=== PATIENT | male | born 1960 | race Caucasian/White ===

== ENCOUNTER 2018-07-24 17:13 | Inpatient (IN) | payer MEDICAID ==
[~2018-07-24] VITALS: Ht 175.3 cm; Wt 74.8 kg
[2018-07-24] MEDS ORDERED: SODIUM CHLORIDE 0.9% 1,000 ML IV ONE (20:34)
[2018-07-24 21:00] LABS: BASOPHILS % 1.1 % (0.0-2.0); HEMATOCRIT. 39.4 % (42.0-52.0); HEMOGLOBIN. 13.5 g/dL (14.0-18.0); LYMPHOCYTES % 29.8 % (20.0-50.0); MEAN CORPUSCULAR HEMOGLOBIN 36.3 pg (28.0-32.0); MEAN PLATELET VOLUME 11.1 fl (7.4-10.4); MONOCYTES % 6.1 % (2.0-8.0); PLATELET 108 x1000/uL (130-400); RED BLOOD CELL COUNT 3.72 mill/uL (4.7-6.1); RED CELL DISTRIBUTION WIDTH 13.7 % (11.6-14.6)
[2018-07-24 21:03] LABS: CHLORIDE 106 mEq/L (98-107)
[2018-07-24 21:07] LABS: ETHANOL BLOOD 278 mg/dL
[2018-07-24] MEDS ORDERED: INSULIN REGULAR (HUMULIN R) 300UNITS/3ML SUBCUT ONE (21:30)
[2018-07-24 21:58] LABS: BG BASE EXCESS -3.3 mmol/L (-2.0-2.0); BG CARBOXYHEMOGLOBIN 0.1 % (0.5-1.5); BG DEOXYHEMOGLOBIN 7.5 % (0.0-5.0); BG FRACTION INSPIRED OXYGEN 21; BG HCO3 ACT 21.2 mmol/L (22.0-26.0); BG METHEMOGLOBIN 0.3 % (0.0-1.5); BG OXYGEN SATURATION 92.5 % (92.0-98.5); BG OXYHEMOGLOBIN 92.1 % (94.0-97.0); BG PCO2 36.3 mmHg (35.0-45.0); BG PH 7.384 (7.350-7.450); BG PO2 71.1 mmHg (75.0-100.0); BG SAMPLE SITE RIGHT RADIAL; BG TOTAL HEMOGLOBIN 13.4 g/dL (12.0-18.0); BG VENT MODE ROOM AIR
[2018-07-24 22:20] LABS: METHADONE URINE SCREEN NEGATIVE (NEGATIVE)
[2018-07-24 22:21] LABS: *AMPHETAMINES SCREEN URINE NEGATIVE (NEGATIVE); *BARBITURATES SCREEN URINE NEGATIVE (NEGATIVE); *BENZODIAZEPINES SCREEN URINE NEGATIVE (NEGATIVE); *COCAINE SCREEN URINE NEGATIVE (NEGATIVE); CANNABINOID URINE SCREEN NEGATIVE (NEGATIVE); OPIATES URINE SCREEN NEGATIVE (NEGATIVE); PHENCYCLIDINE URINE SCREEN NEGATIVE (NEGATIVE)
[2018-07-25] VITALS: BP 112/76
[2018-07-25] MEDS ORDERED: DEXTROSE 50% WATER 50ML SYRINGE IV PRN ×2 (01:00)
[2018-07-25] MEDS ORDERED: LORAZEPAM 2MG/ML CPJ IV PRN (01:30)
[2018-07-25 04:00] VITALS: BP 141/70
[2018-07-25 06:31] LABS: EOSINOPHILS % 2.2 % (0.0-5.0); HEMATOCRIT. 34.4 % (42.0-52.0); HEMOGLOBIN. 11.7 g/dL (14.0-18.0); LYMPHOCYTES % 17.4 % (20.0-50.0); MEAN CORPUSCULAR HEMOGLOBIN 35.1 pg (28.0-32.0); MEAN CORPUSCULAR VOLUME 102.9 fL (80.0-94.0); MONOCYTES % 7.3 % (2.0-8.0); NEUTROPHILS % 72.1 % (40.0-76.0); PLATELET 102 x1000/uL (130-400); RED BLOOD CELL COUNT 3.34 mill/uL (4.7-6.1); RED CELL DISTRIBUTION WIDTH 13.7 % (11.6-14.6)
[2018-07-25] MEDS: BLOOD SUGAR DIAGNOSTIC STRIP TEST SCH ×4 (06:57→20:01)
[2018-07-25] MEDS: INSULIN LISPRO 100 UNITS/ML SUBCUT SCH ×6 (07:01→21:10)
[2018-07-25 07:09] LABS: CHLORIDE 108 mEq/L (98-107)
[2018-07-25 07:17] LABS: HDL CHOLESTEROL 46 mg/dL (40-59)
[2018-07-25 07:21] LABS: LDL CHOLESTEROL 103 mg/dL (5-100)
[2018-07-25 08:00] VITALS: BP 145/68
[2018-07-25] MEDS: MULTIVITAMINS,THER W-MINERALS TABLET PO SCH (08:35)
[2018-07-25] MEDS: FOLIC ACID/VITAMIN B COMP W-C TABLET PO SCH (08:35)
[2018-07-25] MEDS: FAMOTIDINE 20MG TABLET PO SCH (08:35)
[2018-07-25] MEDS ORDERED: ENOXAPARIN 40MG/0.4ML SYR SUBCUT SCH (09:00)
[2018-07-25] MEDS ORDERED: INSULIN GLARGINE UD 100 UNITS/ML SYR SUBCUT SCH ×2 (10:00→22:00)
[2018-07-25] MEDS: THIAMINE HCL 100MG TABLET PO SCH (11:50)
[2018-07-25 12:00] VITALS: BP 149/76
[2018-07-25] MEDS ORDERED: ACETAMINOPHEN 325MG TABLET PO PRN (12:00)
[2018-07-25] MEDS ORDERED: KETOROLAC 30MG/ML VIAL IV PRN (12:00)
[2018-07-25] MEDS: CHLORDIAZEPOXIDE 25MG CAPSULE PO SCH ×2 (13:10→21:09)
[2018-07-25 18:10] LABS: HEPATITIS B SURFACE ANTIGEN NEGATIVE
[2018-07-25 18:40] LABS: HEPATITIS A AB IGM NEGATIVE (NEGATIVE)
[2018-07-25 20:00] VITALS: BP 150/70
[2018-07-25] MEDS: INSULIN GLARGINE UD 100 UNITS/ML SYR SUBCUT SCH (21:10)
[2018-07-26] VITALS: BP 156/74
[2018-07-26 04:00] VITALS: BP 142/78
[2018-07-26] MEDS: CHLORDIAZEPOXIDE 25MG CAPSULE PO SCH ×2 (06:17→13:39)
[2018-07-26] MEDS: INSULIN LISPRO 100 UNITS/ML SUBCUT SCH ×6 (06:18→17:12)
[2018-07-26] MEDS: BLOOD SUGAR DIAGNOSTIC STRIP TEST SCH ×3 (06:19→17:10)
[2018-07-26 06:58] LABS: BASOPHILS % 0.6 % (0.0-2.0); EOSINOPHILS % 3.3 % (0.0-5.0); HEMATOCRIT. 36.6 % (42.0-52.0); HEMOGLOBIN. 12.9 g/dL (14.0-18.0); LYMPHOCYTES % 20.9 % (20.0-50.0); MEAN CORPUSCULAR HEMOGLOBIN 36.1 pg (28.0-32.0); MEAN CORPUSCULAR VOLUME 102.1 fL (80.0-94.0); MEAN PLATELET VOLUME 11.2 fl (7.4-10.4); MONOCYTES % 8.5 % (2.0-8.0); NEUTROPHILS % 66.7 % (40.0-76.0); PLATELET 97 x1000/uL (130-400); RED BLOOD CELL COUNT 3.58 mill/uL (4.7-6.1); RED CELL DISTRIBUTION WIDTH 13.9 % (11.6-14.6)
[2018-07-26 07:43] LABS: CHLORIDE 104 mEq/L (98-107)
[2018-07-26 08:00] VITALS: BP 150/74
[2018-07-26] MEDS: THIAMINE HCL 100MG TABLET PO SCH (09:25)
[2018-07-26] MEDS: MULTIVITAMINS,THER W-MINERALS TABLET PO SCH (09:25)
[2018-07-26] MEDS: FAMOTIDINE 20MG TABLET PO SCH (09:25)
[2018-07-26] MEDS: FOLIC ACID/VITAMIN B COMP W-C TABLET PO SCH (09:25)
[2018-07-26] MEDS: INSULIN GLARGINE UD 100 UNITS/ML SYR SUBCUT SCH (09:27)
[2018-07-26 12:00] VITALS: BP 143/76
[2018-07-26 14:42] LABS: CLARITY URINE CLEAR (CLEAR); COLOR URINE DARK YELLOW (YELLOW); KETONES URINE NEGATIVE (NEGATIVE); LEUKOCYTE ESTERASE URINE NEGATIVE (NEGATIVE); NITRITE URINE NEGATIVE (NEGATIVE); OCCULT BLOOD URINE TRACE (NEGATIVE); PROTEIN URINE 2+ (NEGATIVE); SPECIFIC GRAVITY URINE 1.013 (1.005-1.030)
[2018-07-26 16:00] VITALS: BP 148/69
[2018-07-26 18:28] VITALS: BP 148/69
[2018-07-27 09:13] LABS: ABSOLUTE EOSINOPHILS 0.1 x10E3/uL (0.0-0.4); ABSOLUTE LYMPHOCYTES 1.4 x10E3/uL (0.7-3.1); ABSOLUTE MONOCYTES 0.4 x10E3/uL (0.1-0.9); ABSOLUTE NEUTROPHILS 5.4 x10E3/uL (1.4-7.0); BASOPHILS 0 % (Not Estab.); HEMATOCRIT 35.6 % (37.5-51.0); HEMOGLOBIN 11.8 g/dL (13.0-17.7); IMMATURE GRANULOCYTES 0 % (Not Estab.); LYMPHOCYTES 19 % (Not Estab.); MEAN CORPUSCULAR HEMOGLOBIN 34.6 pg (26.6-33.0); MEAN CORPUSCULAR HGB CONC. 33.1 g/dL (31.5-35.7); MEAN CORPUSCULAR VOLUME 104 fL (79-97); MONOCYTES 6 % (Not Estab.); NEUTROPHILS 74 % (Not Estab.); PLATELETS 128 x10E3/uL (150-379); RBC 3.41 x10E6/uL (4.14-5.80); RED CELL DISTRIBUTION WIDTH 14.6 % (12.3-15.4); WBC 7.3 x10E3/uL (3.4-10.8)
[2018-07-27 13:12] LABS: % CD 3 POS. LYMPHOCYTES 73.5 % (57.5-86.2); % CD 8 POS. LYMPH 55.1 % (12.0-35.5); ABSOLUTE CD 3 1029 /uL (622-2402); ABSOLUTE CD 4 HELPER 252 /uL (359-1519); ABSOLUTE CD 8 SUPPRESSOR 771 /uL (109-897); CD4/CD8 RATIO 0.33 (0.92-3.72)
== END 2018-07-26 18:40 | disposition home or self-care (01) | DRG 720 ==
LOC: ER 17:21 → 8WST 22:40 → ENRESERV 23:15
PROVIDERS: ADMIT Internal Medicine; ATTEND Internal Medicine
PROC: 0HDMXZZ Extraction of Right Foot Skin, External Approach (ICD-10-PCS; principal; 2018-07-25)
DX: A41.9 Sepsis, unspecified organism (principal); J96.00 Acute respiratory failure, unspecified whether with hypoxia or hypercapnia; G93.40 Encephalopathy, unspecified; D61.818 Other pancytopenia; G90.8 Other disorders of autonomic nervous system; F10.229 Alcohol dependence with intoxication, unspecified; Y90.8 Blood alcohol level of 240 mg/100 ml or more; G62.9 Polyneuropathy, unspecified; B07.9 Viral wart, unspecified; F15.90 Other stimulant use, unspecified, uncomplicated; Z96.698 Presence of other orthopedic joint implants; F32.9 Major depressive disorder, single episode, unspecified; K76.9 Liver disease, unspecified; I10 Essential (primary) hypertension; E11.42 Type 2 diabetes mellitus with diabetic polyneuropathy; Z79.4 Long term (current) use of insulin; Z83.3 Family history of diabetes mellitus; B07.0 Plantar wart; E44.1 Mild protein-calorie malnutrition; Z68.24 Body mass index [BMI] 24.0-24.9, adult
CPT/HCPCS: 36415; 36600; 71045; 80048; 80061; 80069; 80305; 80320; 82010; 82375; 82805; 82962; 83036; 84443; 84484; 86359; 86360; 86705; 86709; 86803; 87340; 93005; 93306; 93970; 96360; 96361; 96372; 99285; J1650; J1815; J1885; J7030; G0480